=== PATIENT | male | born 1985 | race Caucasian/White ===

== ENCOUNTER 2022-10-17 10:25 | Emergency (ER) | payer MEDICAID ==
[~2022-10-17] VITALS: Ht 172.7 cm; Wt 136.1 kg
[2022-10-17] MEDS ORDERED: fentaNYL citrate 0.05 MG/ML VIAL IVP ONE (10:30)
[2022-10-17] MEDS ORDERED: NACL 0.9% 1,000 ML IV ONE (10:30)
[2022-10-17 10:34] VITALS: BP 182/66
--- NOTE | 2022-10-17 10:41 | NUR ---
SPOKE TO [facility]
--- NOTE | 2022-10-17 10:42 | NUR ---
Patient to be transferred to [facility] ([place] Is being transferred due to HIGHER LEVEL OF CARE. Receiving facility has accepting physician and available space. ER physician has signed transfer form. Patient or responsible libertarian has agreed to transfer and signed form. Patient belongings inventoried and will be sent with patient. Copy of nursing notes, lab reports, EKG, Physicians Orders and X-rays to be sent with patient. Report called to [facility] at receiving facility. [facility] ambulance service has been called for transfer. ETA is 5-10MIN.
[2022-10-17 10:53] LABS: BASOPHILS % (AUTO) 0.5 % (0.0-2.0); EOSINOPHILS # (AUTO) 0.1 K/uL (0-0.4); EOSINOPHILS % (AUTO) 0.7 % (0.0-4.0); HEMATOCRIT 46.9 % (36-52); HEMOGLOBIN 15.9 g/dL (12.0-18.0); LYMPHOCYTES # (AUTO) 3.3 K/uL (2.0-11.5); LYMPHOCYTES % (AUTO) 34.6 % (20.5-51.1); MEAN CORPUSCULAR HEMOGLOBIN 29 pg (27-31); MEAN CORPUSCULAR HGB CONC 34 g/dL (33-37); MEAN CORPUSCULAR VOLUME 84.7 fL (80-94); MONOCYTES # (AUTO) 1.2 K/uL (0.8-1.0); MONOCYTES % (AUTO) 12.9 % (1.7-9.3); NEUTROPHILS # (AUTO) 4.9 K/uL (1.8-7.7); NEUTROPHILS % (AUTO) 51.3 % (42.2-75.2); PLATELET COUNT (AUTO) 365 K/uL (140-450); RED BLOOD CELL COUNT(AUTO) 5.54 MIL/uL (4.20-6.10); RED CELL DISTRIBUTION WIDTH 12.9 % (11.6-13.7); WHITE BLOOD COUNT (AUTO) 9.6 K/uL (4.8-10.8)
[2022-10-17 11:32] VITALS: BP 129/105
[2022-10-17 12:16] LABS: ALBUMIN 3.7 g/dL (3.4-5.0); ASPARTATE AMINOTRANSFERASE 18 U/L (15-37); CARBON DIOXIDE 25.9 mmol/L (21-32); CHLORIDE 99 mmol/L (98-107); CREATININE 0.9 mg/dL (0.6-1.3); GFR ARICAN-AMERICAN 121 mL/min (>90); GLUCOSE 190 mg/dL (74-106); POTASSIUM 3.9 mmol/L (3.5-5.1); SODIUM SERUM 137 mmol/L (136-145); TOTAL BILIRUBIN 0.5 mg/dL (0.0-1.0); UREA NITROGEN, BLOOD 12 mg/dL (7-18)
== END 2022-10-17 10:42 | disposition short-term general hospital (02) ==
LOC: MED 10:25
DX: S31.133A Puncture wound of abdominal wall without foreign body, right lower quadrant without penetration into peritoneal cavity, initial encounter (principal); E11.9 Type 2 diabetes mellitus without complications; W32.0XXA Accidental handgun discharge, initial encounter; Y93.89 Activity, other specified; Y92.89 Other specified places as the place of occurrence of the external cause; Y99.8 Other external cause status
CPT/HCPCS: 36415; 80053; 85025; 86886; 86900; 86901; 99284; G0482